=== PATIENT | male | born 1945 | race Caucasian/White ===

== ENCOUNTER 2016-05-08 17:48 | Emergency (ER) | payer OTHER ==
[~2016-05-08] VITALS: Ht 180.3 cm; Wt 99.8 kg
[2016-05-08 18:17] VITALS: BP 140/69
[2016-05-08] MEDS ORDERED: IBUPROFEN 600 MG TAB PO ONE (19:15)
== END 2016-05-08 19:43 | disposition home or self-care (01) ==
LOC: ER 18:00
DX: S63.502A Unspecified sprain of left wrist, initial encounter (principal); W19.XXXA Unspecified fall, initial encounter; Y93.89 Activity, other specified; Y99.8 Other external cause status; Y92.89 Other specified places as the place of occurrence of the external cause
CPT/HCPCS: 29125; 73110